=== PATIENT | female | born 1955 | race Caucasian/White ===

== ENCOUNTER 2018-08-22 10:00 | Inpatient (IN) | payer OTHER ==
[~2018-08-22] VITALS: Ht 172.7 cm; Wt 86.2 kg
[2018-08-22] MEDS ORDERED: PROCARDIA XL90 MG PO (10:23)
[2018-08-22] MEDS ORDERED: CATAPRES0.3 M1 PO (10:24)
[2018-08-22] MEDS ORDERED: SYNTHROID137 MCG PO (10:24)
[2018-09-10] MEDS ORDERED: PANTOPRAZOLE SO40 MG PO (14:06)
[2018-09-10] MEDS ORDERED: TRAM1TAB98 PO (14:07)
[2018-09-10] MEDS ORDERED: INTESTINEX680 M1 PO (14:07)
== END 2018-09-10 15:15 | disposition home or self-care (01) | DRG 330 ==
LOC: SURG 10:00 → O/R 08-30 08:30 → SURG 08-30 08:30 → ICU 09-02 21:16 → SURG 09-06 17:35
PROVIDERS: ADMIT Surgery
PROC: 07TB4ZZ Resection of Mesenteric Lymphatic, Percutaneous Endoscopic Approach (ICD-10-PCS; 2018-08-30)
PROC: 0DTF4ZZ Resection of Right Large Intestine, Percutaneous Endoscopic Approach (ICD-10-PCS; principal; 2018-08-30 09:00)
PROC: 0W3P8ZZ Control Bleeding in Gastrointestinal Tract, Via Natural or Artificial Opening Endoscopic (ICD-10-PCS; 2018-08-31)
PROC: 30233N1 Transfusion of Nonautologous Red Blood Cells into Peripheral Vein, Percutaneous Approach (ICD-10-PCS; 2018-08-31)
PROC: 4A12X4Z Monitoring of Cardiac Electrical Activity, External Approach (ICD-10-PCS; 2018-08-31)
PROC: 02HV33Z Insertion of Infusion Device into Superior Vena Cava, Percutaneous Approach (ICD-10-PCS; 2018-09-02)
PROC: B246ZZZ Ultrasonography of Right and Left Heart (ICD-10-PCS; 2018-09-04)
DX: D12.2 Benign neoplasm of ascending colon (principal); K91.841 Postprocedural hemorrhage of a digestive system organ or structure following other procedure; D62 Acute posthemorrhagic anemia; K91.89 Other postprocedural complications and disorders of digestive system; K92.2 Gastrointestinal hemorrhage, unspecified; K56.7 Ileus, unspecified; I16.0 Hypertensive urgency; R59.0 Localized enlarged lymph nodes; E03.8 Other specified hypothyroidism; I10 Essential (primary) hypertension; M17.11 Unilateral primary osteoarthritis, right knee; M54.5 Low back pain